=== PATIENT | female | born 1975 | race Caucasian/White ===

== ENCOUNTER → 2018-06-12 | Outpatient (CLI) | payer OTHER ==
[2018-06-12 10:19] LABS: BASO % 0.3 % (0.0-1.0); EOS # 0.1 10^3/uL (0.0-0.50); EOS % 1.4 % (0.0-3.0); HEMATOCRIT 41.2 % (36.0-47.0); HEMOGLOBIN 13.9 g/dl (12.0-15.5); IMMATURE GRANULOCYTE % 0.3 % (0-3.0); LYMPH # 1.4 10^3/uL (1.5-4.5); LYMPH % 21.2 % (24.0-44.0); MEAN CORPUSCULAR HEMOGLOBIN 30.9 pg (27.0-33.0); MEAN CORPUSCULAR HGB CONC 33.7 g/dl (32.0-36.5); MEAN CORPUSCULAR VOLUME 91.6 fl (80.0-96.0); MONO # 0.4 10^3/uL (0.0-0.8); MONO % 5.6 % (0.0-5.0); NEUTROPHILS # 4.7 10^3/uL (1.8-7.7); NEUTROPHILS % 71.2 % (36.0-66.0); PLATELET COUNT, AUTOMATED 270 10^3/uL (150-450); RED CELL DISTRIBUTION WIDTH 12.8 % (11.5-14.5); WHITE BLOOD COUNT 6.6 10^3/uL (4.0-10.0)
[2018-06-12 10:41] LABS: ANION GAP 5 MEQ/L (8-16); BLOOD UREA NITROGEN 17 MG/DL (7-18); CALCIUM LEVEL 9.2 MG/DL (8.5-10.1); CARBON DIOXIDE LEVEL 29 MEQ/L (21-32); CHLORIDE LEVEL 110 MEQ/L (98-107); CREATININE FOR GFR 0.95 MG/DL (0.55-1.30); GLOMERULAR FILTRATION RATE > 60.0 (>58); GLUCOSE, FASTING 95 MG/DL (70-100); POTASSIUM SERUM 4.4 MEQ/L (3.5-5.1); SODIUM LEVEL 144 MEQ/L (136-145)
== END ==
LOC: M LAB 09:23
DX: G57.61 Lesion of plantar nerve, right lower limb (principal); M79.671 Pain in right foot
CPT/HCPCS: 93005

== ENCOUNTER 2018-06-17 09:55 | Day surgery (SDC) | payer OTHER ==
[2018-06-17 10:50] LABS: CONTROL LINE UCG INT CTR LINE PRESENT; URINE PREG TEST NEGATIVE (NEGATIVE)
[2018-06-17] MEDS ORDERED: dexameTHASONE 4 MG/ML 1ML VIAL (J1100) As Ordered (11:45)
[2018-06-17] MEDS: BUPIVACAINE HCL 0.5% 30 ML VIAL As Ordered (12:01)
[2018-06-17] MEDS: LIDOCAINE 2% MDV 20 ML VIAL As Ordered (12:01)
[2018-06-17] MEDS ORDERED: PROPOFOL 200 MG/20 ML VIAL As Ordered (12:03)
[2018-06-17] MEDS ORDERED: MIDAZOLAM INJ 2 MG/2 ML VIAL (J2250) As Ordered (12:03)
[2018-06-17] MEDS ORDERED: KETOROLAC 60 MG/2 ML VIAL (J1885) As Ordered (12:03)
[2018-06-17] MEDS ORDERED: LIDOCAINE 2% INJ 100 MG/5 ML SDV (FOR ANES.) As Ordered (12:03)
[2018-06-17] MEDS ORDERED: fentaNYL 100 MCG/2 ML INJECTION (J3010) As Ordered (12:03)
[2018-06-17] MEDS ORDERED: ONDANSETRON 4MG/2ML VIAL (J2405) As Ordered (12:03)
[2018-06-17] MEDS: BACITRACIN PWD 50,000 UNITS VIAL As Ordered (12:24)
[2018-06-17] MEDS: NEOSPORIN GU IRRIG 20 ML VIAL As Ordered (12:26)
== END 2018-06-17 13:35 | disposition home or self-care (01) ==
LOC: M SDC 09:55
DX: G57.61 Lesion of plantar nerve, right lower limb (principal); Z88.2 Allergy status to sulfonamides
CPT/HCPCS: 28080

== ENCOUNTER → 2020-09-18 | Outpatient (CLI) | payer SELFPAY | LOC: M LABSMTC 11:40 | PROVIDERS: ATTEND Pediatrics | DX: Z20.822 Contact with and (suspected) exposure to COVID-19 (principal) ==

== ENCOUNTER → 2020-12-04 | Outpatient (CLI) | payer OTHER | LOC: M LABSMTC 11:17 | PROVIDERS: ATTEND Student in an Organized Health Care Education/Training Program | DX: Z01.812 Encounter for preprocedural laboratory examination (principal); Z20.822 Contact with and (suspected) exposure to COVID-19; N60.91 Unspecified benign mammary dysplasia of right breast ==

== ENCOUNTER → 2024-03-22 | Outpatient (CLI) | payer OTHER | LOC: M RAD 08:30 | PROVIDERS: ATTEND Internal Medicine | DX: K21.9 Gastro-esophageal reflux disease without esophagitis (principal) ==

== ENCOUNTER → 2024-09-04 | Outpatient (CLI) | payer OTHER | LOC: M PLAIMG 10:00 | PROVIDERS: ATTEND Otolaryngology | DX: J32.0 Chronic maxillary sinusitis (principal) ==

== ENCOUNTER → 2024-11-29 | Outpatient (CLI) | payer OTHER ==
[~2024-11-29] MED LIST: DULO-34 PO; ESTR1TAB PO; MEDR1TAB2 PO; OMEP40CA5 PO
== END ==
LOC: M EKG 13:47
PROVIDERS: ATTEND Anesthesiology
DX: R06.83 Snoring (principal)

== ENCOUNTER 2024-12-12 09:33 | Day surgery (SDC) | payer OTHER ==
[~2024-12-12] VITALS: Ht 162.6 cm; Wt 99.8 kg
[2024-12-12] MEDS ORDERED: LR 1,000 ML IV SCH (10:20)
[2024-12-12] MEDS ORDERED: LIDOCAINE 2% 100MG/5ML SDV (FOR ANES.) As Ordered ONE (10:55)
[2024-12-12] MEDS ORDERED: ONDANSETRON 4MG 2ML VIAL As Ordered ONE (10:55)
[2024-12-12] MEDS ORDERED: ROCURONIUM BROMIDE 50MG/5ML VIAL As Ordered ONE (10:55)
[2024-12-12] MEDS ORDERED: propofoL 200 MG/20 ML VIAL As Ordered ONE (10:55)
[2024-12-12] MEDS ORDERED: fentaNYL 100 MCG/2 ML INJECTION As Ordered ONE (10:55)
[2024-12-12] MEDS ORDERED: MIDAZOLAM INJ 2MG/2ML VIAL As Ordered ONE (10:55)
[2024-12-12] MEDS ORDERED: ACETAMINOPHEN 1000MG/100ML IV BAG As Ordered ONE (10:59)
[2024-12-12] MEDS ORDERED: SUGAMMADEX SODIUM 500 MG/5 ML VIAL (BRIDION) As Ordered ONE (12:19)
[2024-12-12] MEDS ORDERED: PHENYLephrine 500MCG 5ML (100MCG/ML) SYRINGE As Ordered ONE (12:20)
[2024-12-12] MEDS: OXYMETAZOLINE 0.05% NASAL SPRAY As Ordered ONE (12:25)
[2024-12-12] MEDS: METHYLENE BLUE 0.5% (5MG/ML) 10 ML AMP (PROVAYBLUE) As Ordered ONE (12:28)
[2024-12-12] MEDS: LIDOCAINE W/EPINEPHRINE 1% 20ML VIAL As Ordered ONE (12:28)
[2024-12-12] MEDS ORDERED: ONDANSETRON 4MG 2ML VIAL IV PRN (13:05)
[2024-12-12] MEDS ORDERED: fentaNYL 100 MCG/2 ML INJECTION IV PRN (13:05)
[2024-12-12] MEDS ORDERED: oxyCODONE 5MG TAB PO PRN (13:05)
[2024-12-12 14:41] VITALS: BP 132/80; TEMP 98.5; O2SAT 97
== END 2024-12-12 14:48 | disposition home or self-care (01) ==
LOC: M SDC 09:33
PROVIDERS: ATTEND Otolaryngology
DX: J34.2 Deviated nasal septum (principal); J34.3 Hypertrophy of nasal turbinates; J34.89 Other specified disorders of nose and nasal sinuses; F41.9 Anxiety disorder, unspecified; F32.A Depression, unspecified; Z79.899 Other long term (current) drug therapy; Z90.89 Acquired absence of other organs; Z88.2 Allergy status to sulfonamides
CPT/HCPCS: 30140; 30520; 81025; J0131; J1100; J2250; J2371; J2405; J3010; Q9968